=== PATIENT | male | born 1970 | race Two or more races ===

== ENCOUNTER 2021-05-29 17:18 | Emergency (ER) | payer OTHER ==
[~2021-05-29] VITALS: Ht 172.7 cm; Wt 105.0 kg
[2021-05-29] MEDS ORDERED: IV NORMAL SALINE 1000ML BAG 1,000 ML IV ONE (18:00)
[2021-05-29 18:13] LABS: BASO # 0.1 x10^3/uL (0.0-0.2); BASO % 1 % (0-3); EOS # 0.1 x10^3/uL (0.0-0.7); EOS % 1 % (0-3); HEMATOCRIT 44.1 % (39.0-53.0); HEMOGLOBIN 15.2 g/dL (13.0-17.5); LYMPH # 1.6 x10^3/uL (1.0-4.8); LYMPH % 18 % (24-48); MEAN CORPUSCULAR HEMOGLOBIN 29 pg (25-35); MEAN CORPUSCULAR HGB CONC 34 g/dL (31-37); MEAN CORPUSCULAR VOLUME 83 fL (79-100); MONO # 0.5 x10^3/uL (0.0-1.1); MONO % 6 % (0-9); NEUT # 6.8 x10^3/uL (1.8-7.7); NEUT % 75 % (31-73); PLATELET COUNT 320 x10^3/uL (140-400); RED CELL DISTRIBUTION WIDTH 13.9 % (11.5-14.5); WHITE BLOOD COUNT 9.1 x10^3/uL (4.0-11.0)
[2021-05-29] MEDS ORDERED: MORPHINE SULFATE 10 MG/ML VIAL. IVP ONE (18:15)
[2021-05-29 18:28] LABS: CALCIUM 8.5 mg/dL (8.5-10.1); GFR 78.8; POTASSIUM 3.5 mmol/L (3.5-5.1)
[2021-05-29 18:31] LABS: ALBUMIN 3.8 g/dL (3.4-5.0); ALBUMIN/GLOBULIN RATIO 1.1 (1.0-1.7); TOTAL BILIRUBIN 0.5 mg/dL (0.2-1.0); TOTAL PROTEIN 7.3 g/dL (6.4-8.2)
--- NOTE | 2021-05-29 18:49 | EKG ---
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
[2021-05-29] MEDS ORDERED: CONTRAST GIVEN. MC PRN (19:00)
[2021-05-29] MEDS ORDERED: IOHEXOL 300 MG/ML 100ML VIAL. IV ONE (19:00)
--- NOTE | 2021-05-29 19:25 | RAD ---
EXAM: CT Abdomen and Pelvis with IV contrast CLINICAL HISTORY: Reason: Epigastric pain, bloody stools / Spl. Instructions: [id number] 75ML / History: . COMPARISON: none TECHNIQUE: Helical CT of the abdomen and pelvis was performed following the administration of intrave nous contrast. Axial, coronal and sagittal reformatted images were generated. PQRS compliance statement - One or more of the following individualized dose reduction techniques wer e utilized for this study: 1. Automated exposure control 2. Adjustment of the mA and/or kV according to patient size 3. Use of iterative reconstruction technique FINDINGS: Lower Chest: Linear and bandlike opacities lung bases likely scarring/atelectasis. Abdomen and Pelvis: No focal liver lesion. Spleen is unremarkable. Pancreas, adrenal glands and kidneys are unremarkable. No hydronephrosis. No hydroureter. Diffuse bladder wall thickening may be seen with cystitis. Gallbl adder wall is mildly indistinct. No biliary ductal dilatation. Appendix is normal. Moderate colonic stool content is seen. No small or large bowel dilatation. No reji wel obstruction. No abdominal or pelvic ascites. No abdominal or pelvic lymphadenopathy. Aorta is normal in caliber. Bones: No aggressive osseous lesion is seen. Degenerative changes spine are seen. IMPRESSION: 1. Bladder wall thickening may be seen with cystitis. 2. Indistinct appearance of the gallbladder wall, nonspecific but can be correlated with lab values as cholecystitis is a consideration. If further imaging is required, ultrasound could provide additio nal details. Electronically signed by: Dima Belhcer MD (05/29/2021 7:22 PM) JEANE
[2021-05-29 19:38] LABS: BILIRUBIN,URINE NEGATIVE (NEG); CLARITY,URINE CLEAR; COLOR,URINE YELLOW; NITRITE,URINE NEGATIVE (NEG); PROTEIN,URINE NEGATIVE (NEG-TRACE); UROBILINOGEN,URINE 0.2 mg/dL (0.2 mg/dL)
[2021-05-29 19:39] LABS: BACTERIA,URINE 0 /HPF (0-FEW); RBC,URINE 0 /HPF (0-2); WBC,URINE OCC /HPF (0-4)
--- NOTE | 2021-05-29 19:48 | RAD ---
XR CHEST 1V History: Reason: Epigastric pain / Spl. Instructions: / History: Comparison: None. Findings: No consolidation or pleural effusion. Normal heart size. No pneumothorax. Impression: 1. No acute cardiopulmonary process. Electronically signed by: Ham Malave DO (05/29/2021 7:45 PM) [facility]
--- NOTE | 2021-05-29 20:42 | PHYS DOC ---
Past Medical History Additional Past Medical Histor: RECTAL BLEEDING (WILDA FANG APRN) Past Surgical History: Other Additional Past Surgical Histo: HERNIA SX (WILDA FANG APRN) Smoking Status: Never Smoker Alcohol Use: None (WILDA FANG APRN) General Adult EDM: Chief Complaint: RECTAL BLEED HPI: HPI: Patient is a 50-year-old male presents to the emergency department complaining of epigastric pain since the fourth week in February 2021. Patient reports he was seen at [facility] on April for this discomfort that he has every day, was told that he may have an ulcer, started on Protonix and was recommended to follow-up with primary care or GI specialty. Patient reports he does not have insurance so he comes to the ER's for his discomfort. Patient reports nausea with this pain states it waxes and wanes between a 5 out of 10 to a 10 out of 10. Patient states the Protonix medication that he takes daily is not working or helping at all. Patient reports the most relief is after eating breakfast in the mornings. Patient states it is worse at night. Patient noticed blood in his stool today which prompted him to come to the emergency department for a reevaluation. Patient states the blood was dark maroon in color and loose. Patient continues to have nausea and 10 out of 10 pain at this time. Patient denies chest pains, chest or nasal congestion, patient denies chest palpitations, recent fever or chills, states he has not been vaccinated for the COVID-19 virus or flu virus. Patient denies other physical complaints or physical concerns. Patient denies a surgical history. Does not have a primary care provider. (WILDA FANG APRN) Review of Systems: Review of Systems: 14 body systems of review of systems have been reviewed. See HPI for pertinent positives and negative responses, otherwise all other systems are negative, nonpertinent or noncontributory. Constitutional: Negative except as outlined in HPI above. Skin: Negative except as outlined in HPI above. Eyes: Negative except as outlined in HPI above. HENT: Negative except as outlined in HPI above. Respiratory: Negative except as outlined in HPI above. Cardiovascular: Negative except as outlined in HPI above. GI: Negative except as outlined in HPI above. : Negative except as outlined in HPI above. Musculoskeletal: Negative except as outlined in HPI above. Integument: Negative except as outlined in HPI above. Neurologic: Negative except as outlined in HPI above. Endocrine: Negative except as outlined in HPI above. Lymphatic: Negative except as outlined in HPI above. Psychiatric: Negative except as outlined in HPI above. (WILDA FANG APRN) Heart Score: C/O Chest Pain: No Risk Factors: Risk Factors: DM, Current or recent (<one month) smoker, HTN, HLP, family history of CAD, obesity. Risk Scores: Score 0 - 3: 2.5% MACE over next 6 weeks - Discharge Home Score 4 - 6: 20.3% MACE over next 6 weeks - Admit for Clinical Observation Score 7 - 10: 72.7% MACE over next 6 weeks - Early Invasive Strategies (WILDA FANG APRN) Current Medications: Current Medications Medications (Trade) Dose Ordered Sig/Hallie Start Time Stop Time Status Last Admin Dose Admin Info (CONTRAST GIVEN -- Rx MONITORING) 1 each PRN DAILY PRN 05/29/21 19:00 05/31/21 18:59 Iohexol (Omnipaque 300 Mg/ml) 75 ml 1X ONCE 05/29/21 19:00 05/29/21 19:01 DC 05/29/21 19:01 75 ML Morphine Sulfate (Morphine Sulfate) 5 mg 1X ONCE 05/29/21 18:15 05/29/21 18:16 DC 05/29/21 18:13 5 MG Sodium Chloride 1,000 ml @ 1,000 mls/hr 1X ONCE 05/29/21 18:00 05/29/21 18:59 DC 05/29/21 18:12 1,000 MLS/HR (WILDA FANG APRN) Allergies: Allergies: Allergies Coded Allergies Type Severity Reaction Last Updated Verified No Known Drug Allergies 05/29/21 No (WILDA FANG APRN) Physical Exam: PE: Constitutional: Well developed, well nourished, no acute distress, non-toxic appearance. 50-year-old male in no apparent distress. HENT: Normocephalic, atraumatic. Eyes: Conjunctiva normal, no discharge. Neck: Normal range of motion. Cardiovascular: Distal cap refill less than 2 seconds, no cyanosis appreciated. Lungs & Thorax: Patient is in no respiratory distress, no adventitious lung sounds appreciated. Abdomen: Bowel sounds normal, soft, tenderness to palpation epigastric area, no masses, no pulsatile masses. No bruising or skin discoloration of the abdomen. Skin: Warm, dry, no erythema, no rash. Back: No tenderness, no CVA tenderness. Extremities: No tenderness, no cyanosis, no clubbing, ROM intact, no edema. Neurologic: Alert and oriented X 3, normal motor function, normal sensory function, no focal deficits noted. Psychologic: Affect normal, judgement normal, mood normal. : Rectal exam with ED nurse at bedside for hazardous waste management specialist, there was no stool in the rectal vault, no external hemorrhoids appreciated, patient tolerated well. (WILDA FANG APRN) Current Patient Data: Labs: Laboratory Tests Test 05/29/21 17:44 05/29/21 19:26 White Blood Count 9.1 x10^3/uL (4.0-11.0) Red Blood Count 5.30 x10^6/uL (4.30-5.70) Hemoglobin 15.2 g/dL (13.0-17.5) Hematocrit 44.1 % (39.0-53.0) Mean Corpuscular Volume 83 fL (79-100) Mean Corpuscular Hemoglobin 29 pg (25-35) Mean Corpuscular Hemoglobin Concent 34 g/dL (31-37) Red Cell Distribution Width 13.9 % (11.5-14.5) Platelet Count 320 x10^3/uL (140-400) Neutrophils (%) (Auto) 75 % (31-73) H Lymphocytes (%) (Auto) 18 % (24-48) L Monocytes (%) (Auto) 6 % (0-9) Eosinophils (%) (Auto) 1 % (0-3) Basophils (%) (Auto) 1 % (0-3) Neutrophils # (Auto) 6.8 x10^3/uL (1.8-7.7) Lymphocytes # (Auto) 1.6 x10^3/uL (1.0-4.8) Monocytes # (Auto) 0.5 x10^3/uL (0.0-1.1) Eosinophils # (Auto) 0.1 x10^3/uL (0.0-0.7) Basophils # (Auto) 0.1 x10^3/uL (0.0-0.2) Sodium Level 141 mmol/L (136-145) Potassium Level 3.5 mmol/L (3.5-5.1) Chloride Level 103 mmol/L (98-107) Carbon Dioxide Level 28 mmol/L (21-32) Anion Gap 10 (6-14) Blood Urea Nitrogen 8 mg/dL (8-26) Creatinine 1.0 mg/dL (0.7-1.3) Estimated GFR (Cockcroft-Gault) 78.8 BUN/Creatinine Ratio 8 (6-20) Glucose Level 101 mg/dL (70-99) H Calcium Level 8.5 mg/dL (8.5-10.1) Magnesium Level 2.0 mg/dL (1.8-2.4) Total Bilirubin 0.5 mg/dL (0.2-1.0) Aspartate Amino Transferase (AST) 9 U/L (15-37) L Alanine Aminotransferase (ALT) 32 U/L (16-63) Alkaline Phosphatase 58 U/L (46-116) Troponin I High Sensitivity 6 ng/L (4-75) Total Protein 7.3 g/dL (6.4-8.2) Albumin 3.8 g/dL (3.4-5.0) Albumin/Globulin Ratio 1.1 (1.0-1.7) Lipase 80 U/L (73-393) Urine Collection Type Unknown Urine Color Yellow Urine Clarity Clear Urine pH 8.0 (<5.0-8.0) Urine Specific Downs 1.020 (1.000-1.030) Urine Protein Negative mg/dL (NEG-TRACE) Urine Glucose (UA) Negative mg/dL (NEG) Urine Ketones (Stick) Negative mg/dL (NEG) Urine Blood Negative (NEG) Urine Nitrite Negative (NEG) Urine Bilirubin Negative (NEG) Urine Urobilinogen Dipstick 0.2 mg/dL (0.2 mg/dL) Urine Leukocyte Esterase Negative (NEG) Urine RBC 0 /HPF (0-2) Urine WBC Occ /HPF (0-4) Urine Squamous Epithelial Cells Occ /LPF Urine Bacteria 0 /HPF (0-FEW) Laboratory Tests 05/29/21 17:44 Laboratory Tests 05/29/21 17:44 Vital Signs: Vital Signs Date Time Temp Pulse Resp B/P (MAP) Pulse Ox O2 Delivery O2 Flow Rate FiO2 05/29/21 18:13 16 96 Room Air 05/29/21 18:06 94 162/96 (118) 05/29/21 17:22 98.4 98.4 (WILDA FANG APRN) EKG: EKG: [] (WILDA FANG APRN) Radiology/Procedures: Radiology/Procedures: STATUS: REG ER ORD. PHYSICIAN: WILDA FANG APRN REASON: Epigastric pain, bloody stools PROCEDURE: CT ABD PELV W/ IV CONTRST ONLY EXAM: CT Abdomen and Pelvis with IV contrast CLINICAL HISTORY: Reason: Epigastric pain, bloody stools / Spl. Instructions: [id number] 75ML [phone] / History: . COMPARISON: none TECHNIQUE: Helical CT of the abdomen and pelvis was performed following the administration of intravenous contrast. Axial, coronal and sagittal reformatted images were generated. PQRS compliance statement - One or more of the following individualized dose reduction techniques were utilized for this study: 1. Automated exposure control 2. Adjustment of the mA and/or kV according to patient size 3. Use of iterative reconstruction technique FINDINGS: Lower Chest: Linear and bandlike opacities lung bases likely scarring/atelectasis. Abdomen and Pelvis: No focal liver lesion. Spleen is unremarkable. Pancreas, adrenal glands and kidneys are unremarkable. No hydronephrosis. No hydroureter. Diffuse bladder wall thickening may be seen with cystitis. Gallbladder wall is mildly indist inct. No biliary ductal dilatation. Appendix is normal. Moderate colonic stool content is seen. No small or large bowel dilatation. No bowel obstruction. No abdominal or pelvic ascites. No abdominal or pelvic lymphadenopathy. Aorta is normal in caliber. Bones: No aggressive osseous lesion is seen. Degenerative changes spine are seen. IMPRESSION: 1. Bladder wall thickening may be seen with cystitis. 2. Indistinct appearance of the gallbladder wall, nonspecific but can be correlated with lab values as cholecystitis is a consideration. If further imaging is required, ultrasound could provide additional details. (WILDA FANG APRN) Course & Med Decision Making: Course & Med Decision Making Pertinent Labs and Imaging studies reviewed. (See chart for details) 50-year-old male, vital signs reviewed, resents emerged from concerning ep igastric pain every day since the last week in February 2021. Physical examination is unremarkable, unable to send stool for occult blood as there was no stool in the rectal vault. There is no blood around the rectum appreciated. Will order CBC, CMP, lipase, CT abdomen pelvis with IV contrast, 1 L normal saline, 4 mg Zofran IV, 5 mg morphine for pain, urinalysis assay. Patient's labs are unremarkable, patient reports his pain and nausea have been relieved and he feels much better now, CT abdomen pelvis concerning for cholecystitis, recommended sonogram study. Discussed the CT findings and recommendations with patient, patient is amenable to ED planning for sonogram study of gallbladder. End of shift report given to ED attending physician Dr. Luciano, sonogram study of gallbladder pending. (WILDA FANG APRN) Course & Med Decision Making US results reviewed. GB wall upper limits of normal. Sludge vs stones. Patient will need to follow up for further outpatient workup. Suspect gallbladder disease. (SISI LUCIANO I DO) Dragon Disclaimer: Dragon Disclaimer: This electronic medical record was generated, in whole or in part, using a voice recognition dictation system. (WILDA FANG APRN) Departure Departure Impression: Primary Impression: Epigastric pain Disposition: HOME / SELF CARE / HOMELESS Condition: GOOD Referrals: NO PCP (PCP) KENNEY DURHAM MD,KAYY Curry MD Patient Instructions: Abdominal Pain Additional Instructions: You were seen today in the emergency department for abdominal discomfort. The CT and sonogram and lab studies were nonconcerning. Please continue to take your Protonix as directed. Please follow-up with your primary care physician for ongoing medical treatment, please see a GI specialist soon, I have given information for Dr. Henson, please call tomorrow for the soonest appointment. Thank you for visiting our Emergency Department. It was a pleasure taking care of you today in the emergency department and we appreciate you trusting us with your care. If any additional problems come up don't hesitate to return to visit us. Please follow up with your primary care provider so they can plan additional care if needed and know about the problem that you had. If symptoms worsen come back to the Emergency Department. Any concerning symptoms that start such as chest pain, shortness of air, weakness or numbness on one side of the body, running high fevers or any other concerning symptoms return to the ER. [facility] [address] [place] [address] [facility] [address] [place] [address] [facility] [address] [facility] [place] [address] [facility] [address] [place] [address] [facility] [address] [place] [address] [address] [place] [address] [address] [place] [address] [place] [address] [facility] [address] [place] [address] [facility] [address] [place] [address] [facility] Department [address] [place] [address] WILDA FANG APRN May 29, 2021 20:42 SISI LUCIANO DO May 29, 2021 22:54
--- NOTE | 2021-05-29 22:15 | RAD ---
INDICATION: Reason: Gallbladder study abnormal CT scan / Spl. Instructions: / History: COMPARISON: CT from same day TECHNIQUE: Grayscale and color ultrasound images obtained through the abdomen. FINDINGS: Pancreas: Not well seen secondary to overlying bowel gas Liver: Liver is mildly echogenic Gallbladder: Gallbladder wall is at the upper limits of normal in thickness. There are some internal echoes. Common Bile Duct: Not dilated. Right Kidney: No hydronephrosis. Aorta/IVC: Limited visualization secondary to overlying structures obscuring IMPRESSION: * There is a small amount of layering material within the gallbladder which could be from sludge wit h a component of tiny stones also in the differential. Gallbladder wall thickness is near the upper l imits of normal. No common bile duct dilation. If there is high clinical concern for acute cholecysti tis nuclear hepatobiliary scan could further assess given the mildly prominent wall. * Liver is mildly echogenic. Nonspecific but can be seen with fatty infiltration. Electronically signed by: Jean-Claude Iglesias MD (05/29/2021 10:12 PM) [id number]
[2021-05-29 22:30] VITALS: BP 160/92
[2021-05-29] MEDS ORDERED: HYDR-2759 PO (23:07)
== END 2021-05-29 23:13 | disposition home or self-care (01) ==
LOC: ER 17:18
DX: R10.13 Epigastric pain (principal)
CPT/HCPCS: 36415; 71045; 74177; 76705; 80053; 81001; 83690; 83735; 84484; 85025; 86850; 86900; 86901; 93005; 96361; 96374; 99285; J2270; J7030; Q9967

== ENCOUNTER → 2021-07-17 | Outpatient (CLI) | payer OTHER ==
[~2021-07-17] MED LIST: HYDR-2759 PO; OXYC1TAB15 PO
== END ==
LOC: LAB 13:57
PROVIDERS: ATTEND Surgery
DX: Z01.812 Encounter for preprocedural laboratory examination (principal); Z20.822 Contact with and (suspected) exposure to COVID-19
CPT/HCPCS: U0003

== ENCOUNTER 2021-07-19 06:05 | Day surgery (SDC) | payer OTHER ==
[~2021-07-19] VITALS: Ht 177.8 cm; Wt 104.7 kg
[~2021-07-19 06:05] MED LIST changes: +HYDROmorphone 2 MG/ML INJ. IVP PRN; +IV RINGERS,LACTATED 1000ML 1,000 ML IV SCH; -OXYC1TAB15 PO; +PROCHLORPERAZINE 10 MG/2 ML VIAL. IVP PRN; +ceFAZolin 2GM PREMIX 2 GM/50 ML BAG IV ONE; +fentaNYL PF VIAL 100 MCG/2 ML VIAL IVP PRN
[2021-07-19] MEDS ORDERED: DEXAMETHASONE SOD PHOS 4 MG/ML VIAL ONE (06:43)
[2021-07-19] MEDS ORDERED: fentaNYL PF VIAL 100 MCG/2 ML VIAL ONE ×2 (06:43→08:42)
[2021-07-19] MEDS ORDERED: ONDANSETRON PF 4 MG/2 ML VIAL. ONE (06:43)
[2021-07-19] MEDS ORDERED: LIDOCAINE 1% PF 5 ML VIAL. ONE (06:43)
[2021-07-19] MEDS ORDERED: ROCURONIUM 50 MG/5 ML VIAL. ONE (06:43)
[2021-07-19 06:45] VITALS: BP 163/88
[2021-07-19] MEDS ORDERED: BUPIVACAINE-EPI 0.5% 30 ML VIAL KIT. ONE (07:12)
[2021-07-19] MEDS ORDERED: SURGICEL HEMOSTAT 4X8 EACH. ONE (07:12)
[2021-07-19] MEDS ORDERED: IOHEXOL 300 MG/ML 50 ML VIAL. ONE (07:12)
[2021-07-19] MEDS ORDERED: GLYCOPYRROLATE 1 MG/5 ML VIAL. ONE (08:00)
[2021-07-19] MEDS ORDERED: hydrALAZINE 20 MG/ML VIAL. ONE (08:14)
[2021-07-19] MEDS ORDERED: SUGAMMADEX SODIUM 200 MG/2 ML VIAL. IVP ONE (08:15)
[2021-07-19] MEDS ORDERED: HYDROmorphone 2 MG/ML INJ. ONE (08:20)
[2021-07-19] MEDS ORDERED: LABETALOL 20 MG/4 ML DISP.SYRIN. IVP ONE (08:22)
--- NOTE | 2021-07-19 08:38 | RAD ---
Interoperative Cholangiogram: Technique: Contrast is introduced into the cystic duct during the performance of a laparoscopic chol ecystectomy and spot views were obtained on a portable C-arm for an intraoperative cholangiogram. Total fluoroscopic time: 10 seconds Total fluoroscopic spot images: 2 Findings: The central biliary tree is visualized and appears normal. No filling defects are seen. Contrast is s een in the duodenum. Impression: No evidence of a retained stone. Electronically signed by: Dannie Antonio MD (07/19/2021 8:35 AM) [id number]
[2021-07-19] MEDS ORDERED: PROCHLORPERAZINE 10 MG/2 ML VIAL. ONE (08:42)
--- NOTE | 2021-07-19 08:43 | PDOC4 ---
Operative Note Operative Note Operative Note: Preoperative Diagnosis: Symptomatic cholelithiasis Postoperative Diagnosis: Same Procedure: Laparoscopic cholecystectomy with intraoperative cholangiogram Surgeons: Samuel Fire Boss: Juan Pablo CHOI, Ray Mera MS 4 Anesthesia: Gen. Estimated Blood Loss: 10 mL Specimen: Gallbladder to pathology Drains: None Complications: None Indications: The patient is a 50-year-old male who is referred with symptomatic cholelithiasis. Surgical treatment was offered by means of a laparoscopic cholecystectomy. The risks of surgery were discussed which include bleeding, infection, bile duct injury, bile leak, pain, the potential for additional surgeries or procedures. The patient understands and would like to proceed. Description: The patient was taken to the operating room and laid supine on the operating table. General anesthesia was performed. The abdomen was prepped with ChloraPrep and draped in a standard surgical fashion. A the right midabdomen a small incision was made through which a 5 mm trocar was inserted under direct visualization. In the upper midabdomen an 11 mm trocar was inserted and in the right upper quadrant two 5 mm trochars were inserted. The gallbladder was retracted cephalad. The cystic duct was dissected free from surrounding tissues. One clip was placed on the duct near the gallbladder junction. An opening was made in the duct and a cholangiocatheter placed within and secured with a clip. Using contrast dye and fluoroscopy an intraoperative cholangiogram was performed that appeared unremarkable. The clip and catheter were then withdrawn. Three clips were placed on the cystic duct and it was divided. The cystic artery was then identified, dissected free, doubly clipped and divided as well. The gallbladder was then mobilized away from the liver with cautery. The gallbladder was then placed in an endoscopic bag and extracted at the superior trocar site. The fascia there was closed with an 0 Vicryl suture and infiltrated with 0.5% marcaine. All blood and irrigation fluid was suctioned and hemostasis was good. The remaining ports were removed and the pneumoperitoneum was relieved. The skin incisions were closed using 4-0 Monocryl suture. Steri-Strips and dressings were then applied. The patient tolerated the procedure well and was sent to the recovery room in stable condition. At the end of the case all counts were correct. KAYY WESTON MD Jul 19, 2021 08:43
[2021-07-19] MEDS ORDERED: OXYC1TAB15 PO (08:45)
--- NOTE | 2021-07-19 08:47 | DISCH ---
DISCHARGE INSTRUCTIONS Condition on Discharge Condition on Discharge: Stable Activity After Discharge Activity Instructions for Disc: Other, see below (no lifting over 20 lbs X 2 weeks, no driving while taking pain meds) Diet after Discharge Diet after Discharge: Regular Wound Incision Care Wound/Incision Care: Other, see below (May remove bandaids tomorrow and shower, steristrips fall off on their own) Follow-Up Follow up with: Dr Weston in office in 2 weeks, call for appointment [phone] KAYY WESTON MD Jul 19, 2021 08:47
[2021-07-19] MEDS: fentaNYL PF VIAL 100 MCG/2 ML VIAL IVP PRN ×2 (08:59→09:08)
[2021-07-19] MEDS ORDERED: oxyCODONE/APAP 5/325 1 TAB TABLET PO ONE (09:15)
[2021-07-19] MEDS ORDERED: MORPHINE SULFATE 2 MG/ML INJ. ONE (09:16)
[2021-07-19] MEDS: MORPHINE SULFATE 2 MG/ML INJ. IVP PRN ×2 (09:22→09:38)
[2021-07-19 10:20] VITALS: BP 170/100
--- NOTE | 2021-07-23 19:12 | PATHOLOGY ---
[facility] Accession Number: [id number] . 01 Material submitted: . gallbladder - GALLBLADDER AND CONTENT . 01 Clinical history: . LAP KATHERINE . 02 Diagnosis: Gallbladder, laparoscopic cholecystectomy: - Chronic cholecystitis. (JPM:renetta; 07/23/2021) [facility] 07/23/2021 1204 Local . 02 Comment: There are no calculi identified within the gallbladder lumen or specimen container. There is no evidence of malignancy. (JPM:renetta; 07/23/2021) . . 02 Electronically signed: . Zachary Howell MD, Pathologist NPI- [id number] . 01 Gross description: . Fixative: Formalin Labeled: Gallbladder and contents Specimen received: Intact Dimensions: 7.9 x 3.1 x 2.6 cm Serosa: Smooth, palomino-pink and glistening with a roughened hepatic bed Lymph node: No Mucosa: Velvety, green-brown Average wall thickness: 0.4 cm Calculi: No Abnormalities: None A1- Weatherization Crew Leader body, fundus, and the cystic duct margin(inked black). ([facility]; 07/20/2021) GZA/GZA 07/20/2021 0915 Local . 02 Pathologist provided ICD-10: K81.1 . 02 CPT . 001355 Specimen Comment: A courtesy copy of this report has been sent to [phone] Specimen Comment: Report sent to Performed at: 01 [facility] [address] [id number] MD Lucho Jansen MD Phone: [phone] Performed at: 02 [facility] [address] [place], [place] [id number] MD Zachary Howell MD Phone: [phone]
== END 2021-07-19 10:36 | disposition home or self-care (01) ==
LOC: SURG 06:05
PROVIDERS: ATTEND Surgery
DX: K80.10 Calculus of gallbladder with chronic cholecystitis without obstruction (principal); I10 Essential (primary) hypertension; E66.9 Obesity, unspecified; Z79.899 Other long term (current) drug therapy; Z98.890 Other specified postprocedural states
CPT/HCPCS: 47563; 74300; 88304; A4209; A4213; A4314; A4364; A4930; A6219; C1887; J0360; J0690; J0780; J1100; J1170; J2270; J2405; J3010; J3490; Q9967; A4452; A4657